=== PATIENT | female | born 2000 | race Two or more races ===

== ENCOUNTER 2023-10-11 09:47 | Emergency (ER) | payer BC ==
[2023-10-11 10:25] LABS: Specific Gravity 1.015 (1.005-1.030)
[2023-10-11] MEDS ORDERED: FENTANYL CITR 100 MCG/2 ML ONE ×2 (10:25→12:47)
[2023-10-11 10:26] LABS: Specific Gravity 1.015 (1.005-1.030); Urine Bilirubin NEGATIVE (Negative); Urine Blood Negative (Negative); Urine Clarity Clear (Clear); Urine Color Colorless (Yellow); Urine Glucose NEGATIVE (Negative); Urine Ketones NEGATIVE (Negative); Urine Microscopic Reflex YN NO UMIC; Urine Nitrite NEGATIVE (Negative); Urine Protein NEGATIVE (Negative); Urine Urobilinogen Normal (Normal); Urine pH 6.5 (5.0-7.0)
[2023-10-11] MEDS ORDERED: KETOROLAC 30 MG/ML INJ ONE (10:26)
[2023-10-11] MEDS ORDERED: dexAMETHasone 10 MG/ML VIAL ONE (10:26)
[2023-10-11] MEDS ORDERED: DIAZEPAM 5 MG TABLET ONE (10:26)
[2023-10-11] MEDS ORDERED: ONDANSETRON 4 MG/2 ML VIAL ONE (10:26)
[2023-10-11] MEDS ORDERED: NA CHLORIDE 0.9% 1,000 ML ONE (10:27)
[2023-10-11 10:32] LABS: Absolute Basophils 0.1 K/uL (0-0.5); Absolute Eosinophils 0.1 K/uL (0-0.5); Absolute Lymphocytes (CBC) 2.3 K/uL (0.7-4.9); Absolute Monocytes 0.5 K/uL (0.1-1.3); Basophils % 0.6 % (0-1.3); Eosinophils % 0.7 % (0-4.4); Hematocrit 40.8 % (36.0-45.0); Hemoglobin 13.4 g/dL (12.0-15.0); MCH 27.9 pg (27.0-35.0); MCHC 32.8 g/dL (32.0-36.0); MCV 85.1 fL (80-100); Neutrophils % 72.7 % (41.7-73.7); Platelets 386 thou/uL (152-406); RBC Red Blood Cell Count 4.79 M/uL (3.86-4.86); Red Cell Distribution Width 13.5 % (12.1-15.2)
[2023-10-11 10:48] LABS: Albumin/Globulin Ratio 0.7 (1.1-1.8); Anion Gap 7.6 mEq/L (5.0-15.0); Bilirubin Total 0.2 mg/dL (0.2-1.0); Globulin 4.2 g/dL (2.3-3.5); Potassium 3.6 mEq/L (3.5-5.1); Protein, Total 7.2 g/dL (6.4-8.2)
--- NOTE | 2023-10-11 11:22 | RAD REPORT ---
EXAM DESCRIPTION: CT - Spine Lumbar Wo Con - 10/11/2023 11:00 am CLINICAL HISTORY: Radiculopathy. PAIN COMPARISON: No comparisons TECHNIQUE: Axial noncontrast CT imaging of the lumbar spine was performed with coronal and sagittal re-formatted images. All CT scans are performed using dose optimization technique as appropriate and may include automated exposure control or mA/KV adjustment according to patient size. FINDINGS: No acute lumbar spine fracture seen. No aggressive marrow pattern or malalignment. Paraspinal tissues are normal in thickness. No paraspinal abscess or hematoma seen. Posterior disc bulge seen and L4-L5 and L5-S1, [id number] in size Within the limitation of CT i maging, no high-grade canal stenosis suspected. IMPRESSION: No acute lumbar spine abnormality. Moderate lower lumbar spondylosis.
--- NOTE | 2023-10-11 12:43 | ER ---
Nurse's Notes [facility] Name: Karla Edge Age: 23 yrs Sex: Female : 2000 Arrival Date: 10/11/2023 Time: 09:47 Bed 17 Private MD: Diagnosis: Low back pain;Sciatica;Obesity, unspecified Presentation: 10/10 10:05 Chief complaint: Patient states: left lower back pain x2 days. worse yesterday and kc6 today. denies injury. Coronavirus screen: At this time, the client does not indicate any symptoms associated with coronavirus-19. Ebola Screen: No symptoms or risks identified at this time. Initial Sepsis Screen: Does the patient meet any 2 criteria? No. Patient's initial sepsis screen is negative. Does the patient have a suspected source of infection? No. Patient's initial sepsis screen is negative. Risk Assessment: Do you want to hurt yourself or someone else? Patient reports no desire to harm self or others. Onset of symptoms was October 11, 2023. 10:05 Method Of Arrival: Wheelchair kc6 10:05 Acuity: ASHLEIGH 3 kc6 Triage Assessment: 10:06 General: Appears in no apparent distress. uncomfortable, obese, well groomed, well kc6 developed, Behavior is calm, cooperative, appropriate for age. Pain: Complains of pain in left low back. EENT: No signs and/or symptoms were reported regarding the EENT system. Neuro: Level of Consciousness is awake, alert, obeys commands, Oriented to person, place, time, situation, Appropriate for age. Cardiovascular: Capillary refill < 3 seconds. Respiratory: Airway is patent Trachea midline Respiratory effort is even, unlabored, Respiratory pattern is regular, symmetrical. GI: No signs and/or symptoms were reported involving the gastrointestinal system. : No signs and/or symptoms were reported regarding the genitourinary system. Derm: No signs and/or symptoms reported regarding the dermatologic system. Skin is intact, is healthy with good turgor, Skin is pink, warm \T\ dry. Musculoskeletal: No signs and/or symptoms reported regarding the musculoskeletal system. Circulation, motion, and sensation intact. Capillary refill < 3 seconds, Range of motion: intact in all extremities. Historical: - Allergies: 10:06 valacyclovir; kc6 - PMHx: 10:06 pcos; kc6 11:20 Asthma; kc6 - PSHx: 11:20 Cholecystectomy; kc6 - Immunization history:: Adult Immunizations up to date. - Infectious Disease History:: Denies. - Social history:: Smoking status: Patient denies any tobacco usage or history of. Screenin:08 [facility] ED Fall Risk Assessment (Adult) History of falling in the last 3 months, kc6 including since admission No falls in past 3 months (0 pts) Confusion or Disorientation No (0 pts) Intoxicated or Sedated No (0 pts) Impaired Gait Yes (1 pt) Mobility Assist Device Used No (0 pt) Altered Elimination No (0 pt) Score/Fall Risk Level 0 - 2 = Low Risk. Abuse screen: Denies threats or abuse. Denies injuries from another. Nutritional screening: No deficits noted. Tuberculosis screening: No symptoms or risk factors identified. Assessment: 10:09 Reassessment: please see triage. kc 11:19 Reassessment: Patient appears in no apparent distress at this time. No changes from [facility] previously documented assessment. Patient and/or family updated on plan of care and expected duration. Pain level reassessed. Patient is alert, oriented x 3, equal unlabored respirations, skin warm/dry/pink. 12:19 Reassessment: Patient appears in no apparent distress at this time. No changes from [facility] previously documented assessment. Patient and/or family updated on plan of care and expected duration. Pain level reassessed. Patient is alert, oriented x 3, equal unlabored respirations, skin warm/dry/pink. Patient denies pain at this time. Patient states feeling better. Patient states symptoms have improved. 13:12 Reassessment: Patient appears in no apparent distress at this time. No changes from [facility] previously documented assessment. Patient and/or family updated on plan of care and expected duration. Pain level reassessed. Patient is alert, oriented x 3, equal unlabored respirations, skin warm/dry/pink. Patient states feeling better. Patient states symptoms have improved. Vital Signs: 10:41 BP 111 / 50; Pulse 73; Resp 16 S; Temp 98.5(O); Pulse Ox 99% on R/A; Weight 127.01 kg kc6 (R); Height 5 ft. 2 in. (R); Pain 8/10; 11:20 BP 112 / 63; Pulse 71; Resp 16 S; Pulse Ox 100% on R/A; kc6 12:27 BP 111 / 65; Pulse 84; Resp 16 S; Pulse Ox 100% on R/A; kc6 10:41 Body Mass Index 51.21 (127.01 kg, 157.48 cm) kc6 10:41 Pain Scale: Adult kc6 ED Course: 09:50 Patient arrived in ED. im 09:54 Roc Gaines MD is Attending Physician. eric 10:05 Masha Bishop, MAILE is Primary Nurse. kc6 10:06 Triage completed. kc6 10:06 Arm band placed on. kc6 10:08 Patient has correct armband on for positive identification. Bed in low position. Call kc6 light in reach. Side rails up X 1. Adult w/ patient. Client placed on continuous cardiac and pulse oximetry monitoring. NIBP monitoring applied. 10:41 Inserted saline lock: 20 gauge in right antecubital area, using aseptic technique. kc6 Blood collected. 11:02 CT Lumbar Spine Wo Con In Process Unspecified. EDMS 12:43 Tad Cummings MD is Referral Physician. [facility] 13:13 No provider procedures requiring assistance completed. IV discontinued, intact, kc6 bleeding controlled, No redness/swelling at site. Pressure dressing applied. Administered Medications: 10:43 Drug: NS 0.9% IV 1000 ml IV at 1 bolus Per protocol; 1000 mL bolus Route: IV; Rate: 1 kc6 bolus; Site: right antecubital; 11:28 Follow up: Response: No adverse reaction; IV Status: Completed infusion; IV Intake: kc6 1000ml 10:43 Drug: Ketorolac IVP 30 mg IVP once; if upt neg Route: IVP; Site: right antecubital; kc6 11:27 Follow up: Response: No adverse reaction; Pain is decreased kc6 10:43 Drug: Diazepam PO 10 mg PO once Route: PO; kc6 11:27 Follow up: Response: No adverse reaction; Pain is decreased; RASS: Alert and Calm (0) kc6 10:43 Drug: Decadron - Dexamethasone IVP 10 mg IVP once Route: IVP; Site: right antecubital; kc6 11:27 Follow up: Response: No adverse reaction kc6 10:43 Drug: Ondansetron IVP 4 mg IVP once; over 2 minutes Route: IVP; Site: right antecubital;kc6 11:27 Follow up: Response: No adverse reaction kc6 10:43 Drug: fentaNYL (PF) IVP 50 mcg IVP once Route: IVP; Site: right antecubital; kc6 11:27 Follow up: Response: No adverse reaction; Pain is decreased; RASS: Alert and Calm (0) kc6 12:54 Drug: fentaNYL (PF) IVP 50 mcg IVP once Route: IVP; Site: right antecubital; kc6 13:12 Follow up: Response: No adverse reaction; Pain is decreased; RASS: Alert and Calm (0) kc6 Medication: 13:13 VIS not applicable for this client. kc6 Intake: 11:28 IV: 1000ml; Total: 1000ml. kc6 Outcome: 12:42 Discharge ordered by MD. reyes 13:13 Discharged to home ambulatory, with significant other, kc6 13:13 Condition: improved 13:13 Discharge instructions given to patient, significant other, Instructed on discharge instructions, follow up and referral plans. medication usage, Demonstrated understanding of instructions, follow-up care, medications, Prescriptions given X 4, 13:13 Patient left the ED. kc6 Signatures: Dispatcher [employer] EDMS Roc Gaines MD MD cha Campbell, Kaitlyn, RN RN kc6 Melva Christopher
--- NOTE | 2023-10-11 12:43 | EDPHYS ---
Physician Documentation [facility] Name: Karla Edge Age: 23 yrs Sex: Female : 2000 Arrival Date: 10/11/2023 Time: 09:47 Bed 17 Private MD: ED Physician Roc Gaines HPI: 10/10 12:31 This 23 yrs old Female presents to ER via Wheelchair with complaints of Low eric Back Pain. 12:31 The patient presents with pain that is acute, with no known mechanism of injury. The eric symptoms are located in the low back. The pain radiates to the left low back. The problem was sustained from unknown cause. Onset: The symptoms/episode began/occurred 3 day(s) ago. Modifying factors: The patient symptoms are alleviated by nothing, the patient symptoms are aggravated by any movement. Severity of symptoms: At their worst the symptoms were moderate, severe, in the emergency department the symptoms have improved, moderately. The patient has experienced similar episodes in the past, a few times, today's symptoms are similar, TODAY WAS WORSE. Historical: - Allergies: 10:06 valacyclovir; kc6 - PMHx: 10:06 pcos; kc6 11:20 Asthma; kc6 - PSHx: 11:20 Cholecystectomy; kc6 - Immunization history:: Adult Immunizations up to date. - Infectious Disease History:: Denies. - Social history:: Smoking status: Patient denies any tobacco usage or history of. ROS: 12:35 Constitutional: Negative for fever, chills, and weight loss, Eyes: Negative for injury, eric pain, redness, and discharge, ENT: Negative for injury, pain, and discharge, Neck: Negative for injury, pain, and swelling, Cardiovascular: Negative for chest pain, palpitations, and edema, Respiratory: Negative for shortness of breath, cough, wheezing, and pleuritic chest pain, Abdomen/GI: Negative for abdominal pain, nausea, vomiting, diarrhea, and constipation, : Negative for injury, bleeding, discharge, and swelling, MS/Extremity: Negative for injury and deformity, Skin: Negative for injury, rash, and discoloration, Neuro: Negative for headache, weakness, numbness, tingling, and seizure, Psych: Negative for depression, anxiety, suicide ideation, homicidal ideation, and hallucinations, Allergy/Immunology: Negative for hives, rash, and allergies, Endocrine: Negative for neck swelling, polydipsia, polyuria, polyphagia, and marked weight changes, Hematologic/Lymphatic: Negative for swollen nodes, abnormal bleeding, and unusual bruising, 12:35 Back: Positive for injury or acute deformity, decreased range of motion, pain at rest, pain with movement, radiated pain, of the right low back, Exam: 12:35 Constitutional: This is a well developed, well nourished patient who is awake, alert, eric and in no acute distress. Head/Face: Normocephalic, atraumatic. Eyes: Pupils equal round and reactive to light, extra-ocular motions intact. Lids and lashes normal. Conjunctiva and sclera are non-icteric and not injected. Cornea within normal limits. Periorbital areas with no swelling, redness, or edema. ENT: Nares patent. No nasal discharge, no septal abnormalities noted. Tympanic membranes are normal and external auditory canals are clear. Oropharynx with no redness, swelling, or masses, exudates, or evidence of obstruction, uvula midline. Mucous membranes moist. Neck: Trachea midline, no thyromegaly or masses palpated, and no cervical lymphadenopathy. Supple, full range of motion without nuchal rigidity, or vertebral point tenderness. No Meningismus. Chest/axilla: Normal chest wall appearance and motion. Nontender with no deformity. No lesions are appreciated. Cardiovascular: Regular rate and rhythm with a normal S1 and S2. No gallops, murmurs, or rubs. Normal PMI, no JVD. No pulse deficits. Respiratory: Lungs have equal breath sounds bilaterally, clear to auscultation and percussion. No rales, rhonchi or wheezes noted. No increased work of breathing, no retractions or nasal flaring. Abdomen/GI: Soft, non-tender, with normal bowel sounds. No distension or tympany. No guarding or rebound. No evidence of tenderness throughout. Female : Normal external genitalia. Skin: Warm, dry with normal turgor. Normal color with no rashes, no lesions, and no evidence of cellulitis. MS/ Extremity: Pulses equal, no cyanosis. Neurovascular intact. Full, normal range of motion. Neuro: Awake and alert, GCS 15, oriented to person, place, time, and situation. Cranial nerves II-XII grossly intact. Motor strength 5/5 in all extremities. Sensory grossly intact. Cerebellar exam normal. Normal gait. Psych: Awake, alert, with orientation to person, place and time. Behavior, mood, and affect are within normal limits. 12:35 Back: pain, that is moderate, of the lumbar area, left low back and right low back, ROM is normal, normal spinal alignment noted, CVA tenderness, is absent, Vital Signs: 10:41 BP 111 / 50; Pulse 73; Resp 16 S; Temp 98.5(O); Pulse Ox 99% on R/A; Weight 127.01 kg kc6 (R); Height 5 ft. 2 in. (R); Pain 8/10; 11:20 BP 112 / 63; Pulse 71; Resp 16 S; Pulse Ox 100% on R/A; kc6 12:27 BP 111 / 65; Pulse 84; Resp 16 S; Pulse Ox 100% on R/A; kc6 10:41 Body Mass Index 51.21 (127.01 kg, 157.48 cm) 6 10:41 Pain Scale: Adult kc6 MDM: 09:54 Patient medically screened. [facility] 12:37 Differential diagnosis: arthritis, strain, fracture, sciatica, contusion, Herniated eric disc UTI. Data reviewed: vital signs, nurses notes, lab test result(s), CBC, electrolytes, radiologic studies, CT scan. Consideration of Admission/Observation Escalation of care including admission/observation considered. I considered the following discharge prescriptions or medication management in the emergency department Medications were administered in the Emergency Department. See MAR. Independent interpretation of the following test(s) in the Emergency Department CT Scan: My interpretation is CT LUMBAR. Test considered but Not performed: MRI: NO MRI BRAIN. Care significantly affected by the following chronic conditions: Obesity, ASTHMA, PCOS. 10/10 10:00 Order name: CBC with Diff; Complete Time: 12:30 [facility] 10/10 10:00 Order name: Comprehensive Metabolic Panel; Complete Time: 12:30 [facility] 10/10 10:00 Order name: Urinalysis w/ reflexes; Complete Time: 12:30 [facility] 10/10 10:00 Order name: PREGU; Complete Time: 12:30 [facility] 10/10 10:00 Order name: CT Lumbar Spine Wo Con; Complete Time: 12:30 [facility] Administered Medications: 10:43 Drug: NS 0.9% IV 1000 ml IV at 1 bolus Per protocol; 1000 mL bolus Route: IV; Rate: 1 kc6 bolus; Site: right antecubital; 11:28 Follow up: Response: No adverse reaction; IV Status: Completed infusion; IV Intake: kc6 1000ml 10:43 Drug: Ketorolac IVP 30 mg IVP once; if upt neg Route: IVP; Site: right antecubital; kc6 11:27 Follow up: Response: No adverse reaction; Pain is decreased kc6 10:43 Drug: Diazepam PO 10 mg PO once Route: PO; kc6 11:27 Follow up: Response: No adverse reaction; Pain is decreased; RASS: Alert and Calm (0) kc6 10:43 Drug: Decadron - Dexamethasone IVP 10 mg IVP once Route: IVP; Site: right antecubital; kc6 11:27 Follow up: Response: No adverse reaction kc6 10:43 Drug: Ondansetron IVP 4 mg IVP once; over 2 minutes Route: IVP; Site: right antecubital;kc6 11:27 Follow up: Response: No adverse reaction kc6 10:43 Drug: fentaNYL (PF) IVP 50 mcg IVP once Route: IVP; Site: right antecubital; kc6 11:27 Follow up: Response: No adverse reaction; Pain is decreased; RASS: Alert and Calm (0) kc6 12:54 Drug: fentaNYL (PF) IVP 50 mcg IVP once Route: IVP; Site: right antecubital; kc6 13:12 Follow up: Response: No adverse reaction; Pain is decreased; RASS: Alert and Calm (0) kc6 Disposition Summary: 10/11/23 12:42 Discharge Ordered Notes: Location: Home eric Problem: new eric Symptoms: have improved eric Condition: Stable eric Diagnosis - Low back pain eric - Sciatica eric - Obesity, unspecified eric Followup: eric - With: Private Physician - When: 1 - 2 days - Reason: Recheck today's complaints, Continuance of care, Re-evaluation by your physician Followup: eric - With: Tad Cummings MD - When: 2 - 3 days - Reason: Recheck today's complaints, Re-evaluation by your physician Discharge Instructions: - Discharge Summary Sheet eric - Acute Back Pain, Adult eric - Chronic Back Pain eric - Musculoskeletal Pain eric - Obesity, Adult eric - Back Injury Prevention, [id number] eric - Chronic Back Pain, [id number] [facility] Forms: - Medication Reconciliation Form eric - Thank You Letter eric - Antibiotic Education eric - Prescription Opioid Use eric - Patient Portal Instructions eric - Leadership Thank You Letter eric - Work release form kc6 Prescriptions: - acetaminophen-codeine 300-30 mg Oral tablet - take 2 tablet ORAL route every 6 hours; 20 tablet; Refills: 0, Product [facility] Selection Permitted - dexamethasone 4 mg Oral tablet - take 1 tablet ORAL route once daily; 6 tablet; Refills: 0, Product Selection eric Permitted - Valium 5 mg Oral Tablet - take 1 tablet ORAL route every 8 hours As needed; 20 tablet; Refills: 0, [facility] Product Selection Permitted - Diclofenac Sodium 75 mg Oral tablet, delayed release (enteric coated) - take 1 tablet ORAL route 2 times per day; 20 tablet; Refills: 0, Product [facility] Selection Permitted Signatures: Dispatcher [employer] EDMS Roc Gaines MD MD cha Campbell, Kaitlyn RN RN kc6 Corrections: (The following items were deleted from the chart) 10:01 10:01 CBC+H.LAB.BRZ ordered. EDMS EDMS 10:01 10:01 COMPREHENSIVE METABOLIC PANEL+C.LAB.BRZ ordered. EDMS EDMS 10:01 10:01 Urinalysis+U.LAB.BRZ ordered. EDMS EDMS 10:01 10:01 Test, Urine+UC.LAB.BRZ ordered. EDMS EDMS
[2023-10-11 13:18] VITALS: TEMP 98.5
[2023-10-11 13:47] VITALS: BP 111/65; O2SAT 100
== END 2023-10-11 13:13 | disposition home or self-care (01) ==
LOC: ER 09:47
DX: M54.30 Sciatica, unspecified side (principal); E66.9 Obesity, unspecified; Z68.43 Body mass index [BMI] 50.0-59.9, adult; Z88.8 Allergy status to other drugs, medicaments and biological substances
CPT/HCPCS: 96361; 85025; 36415; 81025; 81003; 80053; 72131; 96375; 96374; 99284; J3010 ×2; J1100; J2405; J7030